=== PATIENT | female | born 1960 | race African-American/Black ===

== ENCOUNTER 2016-05-27 08:25 | Day surgery (SDC) | payer BC ==
--- NOTE | 2016-05-26 09:47 | History and Physical Report ---
History of Present Illness Date of examination: 05/25/16 Date of admission: 05/27/16 Chief complaint: Left ankle injury History of present illness: 56-year-old, fell down possibly 10 ago, twisted the left ankle with pain, swelling and limitation of movement. She is in the emergency room splinted and subsequently seen by orthopedics elsewhere. She was recommended open/closed treatment. With the fracture displacement then elected for open treatment, she was then seen in my office and being admitted for open reduction internal fixation of the fracture. Past History Past Medical History: COPD Medications and Allergies Allergies Allergy/AdvReac Type Severity Reaction Status Date / Time No Known Allergies Allergy Unverified 05/26/16 09:41 Review of Systems All systems: negative Exam - Constitutional General appearance: Present: no acute distress, well-nourished - EENT Eyes: Present: PERRL ENT: hearing intact, clear oral mucosa - Neck Neck: Present: supple, normal ROM - Respiratory Respiratory effort: normal Respiratory: bilateral: CTA - Cardiovascular Heart Sounds: Present: S1 & S2. Absent: rub, click - Extremities Extremities: pulses symmetrical, No edema, abnormal (Left ankle in short-leg cast, no neurovascular deficit.) Peripheral Pulses: within normal limits - Abdominal General gastrointestinal: Present: soft, non-tender, non-distended, normal bowel sounds Female genitourinary: Present: normal - Integumentary Integumentary: Present: clear, warm, dry - Musculoskeletal Musculoskeletal: gait normal, strength equal bilaterally - Psychiatric Psychiatric: appropriate mood/affect, intact judgment & insight - Neurologic Neurologic: CNII-XII intact, moves all extremities Assessment and Plan - Patient Problems (1) Fracture of lateral malleolus of left ankle Status: Acute Qualifiers: Encounter type: initial encounter Fracture type: closed Open fracture type: O Fracture alignment: displaced Fracture healing: F Qualified Code(s ): S82.62XA - Displaced fracture of lateral malleolus of left fibula, initial encounter for closed fracture Plan to address problem: Open reduction internal fixation. Procedure complications outcome discussed with.
[~2016-05-27 08:25] MED LIST: ANCEF/STERILE WATER 2 GM/20 ML 2 GM/20 ML SYRINGE IV NR; LACTATED RINGERS 1,000 ML IV SCH; PEPCID PO NR; VERSED IV NR
--- NOTE | 2016-05-27 09:23 | Anesthesia Day of Surgery ---
Anesthesia Day of Surgery - Day of Surgery Patient Examined: Yes Patient H&P Reviewed: Yes Patient is NPO: Yes
--- NOTE | 2016-05-27 09:24 | Anesthesia Consultation ---
Anesthesia Consult and Med Hx Date of service: 05/27/16 - Airway Anesthetic Teeth Evaluation: Good ROM Head & Neck: Adequate Mental/Hyoid Distance: Adequate Mallampati Class: Class II Intubation Access Assessment: Probably Good - Pulmonary Exam CTA: Yes - Cardiac Exam Cardiac Exam: RRR - Pre-Operative Health Status ASA Pre-Surgery Classification: ASA2 Proposed Anesthetic Plan: General Nerve Block: Pop - Pulmonary Hx Smoking: No Hx Asthma: Yes (USES INHALERS) Hx Sleep Apnea: No (WANDA PRE SCREEN HIGH RISK) - Cardiovascular System Hx Hypertension: Yes ("WATCHING"- NO MEDS) Hx Coronary Artery Disease: No - Central Nervous System Hx Seizures: No CVA: No - Endocrine Hx Renal Disease: No Hx Cirrhosis: No Hx Insulin Dependent Diabetes: No Hx Thyroid Disease: No Hx Hyperthyroidism: No - Other Systems Hx Cancer: No Hx Obesity: Yes (BMI 30.3) - Additional Comments Anesthesia Medical History Comments: PONV X 1
[2016-05-27] MEDS ORDERED: DECADRON ONE ×2 (09:30→11:16)
[2016-05-27] MEDS ORDERED: MARCAINE-EPI 0.5%-1:200,000 INFILTRATI ONE (09:30)
[2016-05-27] MEDS ORDERED: XYLOCAINE 1% 20 mL ONE (09:31)
[2016-05-27] MEDS ORDERED: NEURONTIN ONE (09:33)
[2016-05-27] MEDS ORDERED: REGLAN ONE (09:33)
[2016-05-27] MEDS ORDERED: NEURONTIN PO NR (10:00)
[2016-05-27] MEDS ORDERED: SUBLIMAZE IV ONE (10:00)
[2016-05-27] MEDS ORDERED: ZOFRAN IV PRN (10:00)
[2016-05-27] MEDS ORDERED: TRANSDERM-SCOP TD NR (10:00)
[2016-05-27] MEDS ORDERED: REGLAN PO NR (10:00)
[2016-05-27] MEDS ORDERED: DIPRIVAN 10 MG/ML IV ONE (10:02)
[2016-05-27] MEDS ORDERED: XYLOCAINE MPF 2% ONE (10:02)
[2016-05-27] MEDS ORDERED: BENADRYL IV NR (10:30)
[2016-05-27] MEDS ORDERED: DILAUDID ONE (11:17)
[2016-05-27] MEDS ORDERED: ZOFRAN ONE (11:42)
[2016-05-27] MEDS ORDERED: NEOSPORIN GU IR ONE (11:45)
--- NOTE | 2016-05-27 11:52 | Procedure Note ---
Date of procedure: 05/27/16 Pre-op diagnosis: Fx lat malleolus, left ankle Post-op diagnosis: same Procedure: ORIF left lat malleoles Anesthesia: GETA, regional Surgeon: CHARLIE GARCÍA Estimated blood loss: minimal Pathology: none Condition: stable Disposition: PACU
--- NOTE | 2016-05-27 11:54 | Discharge Summary ---
Providers - Providers Date of discharge: 05/27/16 Attending physician: CHARLIE GARCÍA Primary care physician: TERELL BYRD Hospitalization Reason for admission: Fx left lat malleolus Condition: Stable Procedures: ORIF left lat malleolus/ Synthes Hospital course: Uneventful Disposition: DISCHARGED TO HOME OR SELFCARE - Discharge Diagnoses (1) Fracture of lateral malleolus of left ankle Status: Acute Qualifiers: Encounter type: initial encounter Fracture type: closed Open fracture type: O Fracture alignment: displaced Fracture healing: F Qualified Code(s ): S82.62XA - Displaced fracture of lateral malleolus of left fibula, initial encounter for closed fracture Core Measure Documentation - Palliative Care Palliative Care/ Comfort Measures: Not Applicable - Core Measures Any of the following diagnoses?: none Exam - Constitutional Vitals: Temp Pulse Resp BP Pulse Ox 97.9 F 73 12 110/66 96 05/27/16 08:53 05/27/16 10:31 05/27/16 10:31 05/27/16 10:31 05/27/16 10:31 Plan Activity: advance as tolerated, up only with assistance, fall precautions Weight Bearing Status: Non-Weight Bearing Diet: regular Wound: per your surgeon's advice Durable Medical Equipment Needed Upon Discharge: other (Has crutches) Follow up with: TERELL BYRD JR, MD [Primary Care Provider] - 7 Days CHARLIE GARCÍA MD [Staff Physician] - 7 Days
[2016-05-27] MEDS: DILAUDID IV PRN ×2 (12:29→12:44)
--- NOTE | 2016-05-27 12:58 | Post Anesthesia Evaluation ---
- Post Anesthesia Evaluation Patient Participated: Yes Airway Patent: Yes Stable Respiratory Function: Yes Nausea/Vomiting: No Temp > 96.8F: Yes Pain Manageable: Yes Adequeate Hydration: Yes Anesthesia Complications: No
[2016-05-27 13:51] VITALS: BP 117/63
--- NOTE | 2016-05-27 16:23 | XRay Report ---
Left ankle 3 views. Findings: An orthopedic side plate with multiple screws is seen transfixing a distal fibular fracture. There are no radiographic signs of complications.
--- NOTE | 2016-05-27 19:36 | Operative Report ---
PREOPERATIVE DIAGNOSIS: Fracture lateral malleolus with displacement. POSTOPERATIVE DIAGNOSIS: Fracture lateral malleolus with displacement. OPERATIVE PROCEDURE: Open reduction and internal fixation, left lateral malleolus/ Synthes 1/3 tubular plate screws. SURGEON: Sammi Zaragoza MD EXECUTIVE COMPENSATION ANALYST: Elina Whitman CSA. ANESTHESIA: Regional block with general sedation. TOURNIQUET TIME: 30 minutes. Procedure done under fluoroscopy. DESCRIPTION OF PROCEDURE: She was taken to the surgery suite, satisfactory analgesia obtained with regional block supplemented with general sedation. Left lower limb prepped with ChloraPrep, satisfactorily draped. The correct patient, procedure, and surgical sites were confirmed. After exsanguinating, tourniquet inflated to 300 mmHg pressure. Incision was made over the posterior lateral aspect of the ankle centering over the fracture site. Incision was deepened, periosteum was elevated and fracture was visualized and the fibrous tissue was excised. Under direct visualization, fracture was reduced and held in the reduced position. Drill hole was made from the proximal to distal fragment across the fracture site using a 2.4 mm drill bit, proximal cortex overdrilled to 3.5 mm and a 4.0 cancellous screw was applied thereby providing inner fragment decompression and stabilization. A 7-hole 1/3 tubular plate was prebent, applied to the posterolateral aspect of the fibula centering over the fracture site. Plate was stabilized to the proximal fragment using a 4.0 cancellous screw applied in the standard fashion. Position confirmed under fluoroscopy. Drill hole was made in the distal fragment under fluoroscopy control care taken to avoid penetration into the joint space. Two cancellous screws applied to the distal fragment, thereby stabilizing the plate distally and then the remaining screws to the proximal fragment were then completed in a similar fashion. AP, lateral and oblique fluoroscopy was carried out showing anatomical reduction and application of internal fixation. Syndesmosis then evaluated under fluoroscopy and appeared stable. Wound was irrigated with G.U. irrigant and closed in layers in the standard fashion using 3-0 Vicryl and 3-0 nylon sutures. Sterile dressings were applied. Ankle was immobilized in a posterior splint at 90 degree flexion, pronation and supination. She was transferred to recovery room to be discharged when discharge criteria are met. At the completion of procedure, counts were accurate. Total tourniquet time approximately 30 minutes. HOMEGOING INSTRUCTIONS: Elevation, localized packs, analgesics. No weightbearing ambulation. She has DME at home. Follow up at the office in 7-10 days. JOB# [id number] RVN/NTS
== END 2016-05-27 14:10 | disposition home or self-care (01) ==
LOC: OR 08:25
PROVIDERS: ATTEND Orthopaedic Surgery
DX: S82.62XA Displaced fracture of lateral malleolus of left fibula, initial encounter for closed fracture (principal); J44.9 Chronic obstructive pulmonary disease, unspecified; J45.909 Unspecified asthma, uncomplicated; I10 Essential (primary) hypertension; K21.9 Gastro-esophageal reflux disease without esophagitis; E66.9 Obesity, unspecified; Z68.30 Body mass index [BMI] 30.0-30.9, adult; Z79.899 Other long term (current) drug therapy; X50.1XXA Overexertion from prolonged static or awkward postures, initial encounter; Y93.9 Activity, unspecified; Y92.9 Unspecified place or not applicable; Y99.9 Unspecified external cause status
CPT/HCPCS: 27792; 64450; 73610; C1713; J0690; J1100; J1170; J1200; J2250; J2405; J2704; J3010; J7120

== ENCOUNTER 2016-10-30 09:36 | Outpatient (CLI) | payer BC ==
--- NOTE | 2016-10-30 14:03 | Mammography Report ---
BILATERAL DIGITAL SCREENING MAMMOGRAM with CAD: 10/30/16 09:36:00 CLINICAL: Routine screening.Previous bilateral benign biopsies COMPARISON:09/23/15 FINDINGS: The breasts are heterogeneously dense, which may obscure small masses.Three scar is marked on the left and one scar marked on the right. No mass, architectural distortion or suspicious calcifications. IMPRESSION: No mammographic evidence of malignancy. BI-RADS CATEGORY: 1 - - Negative RECOMMENDATION: Routine mammographic screening in one year. COMMENT: Patient follow-up letters are generated by our [employer] application.
== END 2016-10-30 09:37 | disposition home or self-care (01) ==
LOC: SPVWC 09:36
PROVIDERS: ATTEND Obstetrics & Gynecology
DX: Z12.31 Encounter for screening mammogram for malignant neoplasm of breast (principal); I10 Essential (primary) hypertension; J45.909 Unspecified asthma, uncomplicated
CPT/HCPCS: 77067; G0202

== ENCOUNTER 2016-12-02 09:46 | Day surgery (SDC) | payer BC ==
[2016-12-02] MEDS ORDERED: NACL 0.9% 1000 ML 1,000 ML IV SCH (11:00)
--- NOTE | 2016-12-02 11:28 | Anesthesia Consultation ---
Anesthesia Consult and Med Hx Date of service: 12/02/16 - Airway Anesthetic Teeth Evaluation: Good ROM Head & Neck: Adequate Mental/Hyoid Distance: Adequate Mallampati Class: Class I Intubation Access Assessment: Probably Good - Pulmonary Exam CTA: Yes - Cardiac Exam Cardiac Exam: RRR - Pre-Operative Health Status ASA Pre-Surgery Classification: ASA2 Proposed Anesthetic Plan: MAC - Pulmonary Hx Smoking: No Hx Asthma: Yes Hx Sleep Apnea: No (WANDA PRE SCREEN HIGH RISK) - Cardiovascular System Hx Hypertension: Yes ("WATCHING"- NO MEDS) Hx Coronary Artery Disease: No - Central Nervous System Hx Seizures: No CVA: No - Endocrine Hx Renal Disease: No Hx Cirrhosis: No Hx Insulin Dependent Diabetes: No Hx Thyroid Disease: No Hx Hyperthyroidism: No - Other Systems Hx Cancer: No Hx Obesity: Yes (BMI 30.3)
--- NOTE | 2016-12-02 11:29 | Anesthesia Day of Surgery ---
Anesthesia Day of Surgery - Day of Surgery Patient Examined: Yes Patient H&P Reviewed: Yes Patient is NPO: Yes
[2016-12-02] MEDS ORDERED: DIPRIVAN 10 MG/ML IV ONE ×3 (11:59)
--- NOTE | 2016-12-02 12:34 | Procedure Note ---
Date of procedure: 12/02/16 Pre-op diagnosis: Colon Polyp Screening Post-op diagnosis: other (No Colon Polyps noted/Extensive,moderately Severe diverticular Disease throughout the colon, most pronounced in the Left Colon? mIld to Moderate Internal Hemorrhoid/No Colon Polyps noted) Anesthesia: MAC Surgeon: GALLO CORTÉS Estimated blood loss: none Pathology: none Condition: stable Disposition: same day (Encourage patient to take fiber supplements and resume home medication and follow up in 1 to 2 weeks.)
[2016-12-02 13:57] VITALS: BP 122/73
--- NOTE | 2016-12-02 14:10 | History and Physical Report ---
HISTORY OF PRESENT ILLNESS: This is a 56-year-old female originally from the [facility], who is here for evaluation for colonoscopy as part of colon polyp screening. Last colonoscopy was close to 10 years ago. She has noticed some changes in her bowel habits and has a remote history of cancer in the family and also has had some breast cyst removed. In addition, she has had some cervical polyps. She has an underlying history of asthma and on occasion has some shortness of breath. SOCIAL HISTORY: Denies any history of smoking, rarely drinks alcohol. No cardiac issues. She has not had any flu shot this year. ALLERGIES: No known allergies. MEDICATIONS: She normally uses Ventolin on a p.r.n. basis, Advair, and vitamins. PHYSICAL EXAMINATION: GENERAL: She is afebrile. VITAL SIGNS: Blood pressure 132/78, pulse 71, height is 5 feet, weight is 156 pounds. HEENT: Exam shows no JVD. LUNGS: Clear to auscultation with some reduced breath sounds. CARDIOVASCULAR: Grossly normal. ABDOMEN: Soft. Bowel sounds present. NEUROLOGIC: The patient is otherwise alert and oriented. IMPRESSION: Colon polyp screening, changes in bowel habits, history of asthma, and history of diverticular disease. PLAN: Is to do a colonoscopy prep in [facility] on 12/02/2016. JOB# [id number] PRISCILLA/MAGALIS
--- NOTE | 2016-12-02 14:17 | Operative Report ---
INDICATIONS: This is a 56-year-old female originally from the [facility], who has an underlying history of asthma, prior history of colon polyps. Last colonoscopy was several years ago. Colonoscopy was done to make sure there was not any recurrence of any polyps. Procedure was done as part of colon polyp screening. DESCRIPTION OF PROCEDURE: Procedure was done after getting informed consent with MAC anesthesia. Initial rectal exam was unremarkable. Instrument was passed rectum onto the cecum, which was identified with ileocecal valve and the appendiceal orifice. Visualization was fair. The terminal ileum was intubated showed normal mucosa. Cecum, ascending colon, transverse colon showed few scattered diverticula. There was moderately severe and deep seated diverticula noted in the left colon involving the descending colon and the sigmoid and the rectum showed mild to moderate internal hemorrhoids. No colon polyps were noted. There was no biopsy done and no bleeding associated with the procedure. IMPRESSION: Colon polyp screening. No colon polyps noted. Moderately severe diverticular disease, most pronounced in the left colon, mild to moderate internal hemorrhoids. The patient will be encouraged to take fiber supplements. Resume previous medication and follow up in the office in about a week's time. cc: Dr. Gomes JOB# [id number] PRISCILLA/MAGALIS
== END 2016-12-02 09:47 | disposition home or self-care (01) ==
LOC: GIO 09:46
DX: Z09 Encounter for follow-up examination after completed treatment for conditions other than malignant neoplasm (principal); K57.30 Diverticulosis of large intestine without perforation or abscess without bleeding; K64.8 Other hemorrhoids; J45.909 Unspecified asthma, uncomplicated; I10 Essential (primary) hypertension; E66.9 Obesity, unspecified; Z68.30 Body mass index [BMI] 30.0-30.9, adult; Z80.9 Family history of malignant neoplasm, unspecified
CPT/HCPCS: 45378; J2704; J7030

== ENCOUNTER 2017-02-11 09:46 | Outpatient (CLI) | payer BC ==
[2017-02-11 10:15] LABS: Eosinophils % (Auto) 5.8 % (0.0-4.3); Hematocrit 38.6 % (30.3-42.9); Hemoglobin 12.5 gm/dl (10.1-14.3); Mean Corpuscular HGB Conc 33 % (30-34); Mean Corpuscular Hemoglobin 30 pg (28-32); Mean Corpuscular Volume 92 fl (79-97); Platelet Count 358 K/mm3 (140-440); Red Blood Count 4.22 M/mm3 (3.65-5.03); Red Cell Distribution Width 13.6 % (13.2-15.2); White Blood Count 7.4 K/mm3 (4.5-11.0)
[2017-02-11 10:37] LABS: Alanine Aminotransferase 23 units/L (7-56); Albumin/Globulin Ratio 1.2 %; Alkaline Phosphatase 73 units/L (35-129); Anion Gap 15 mmol/L; BUN/Creatinine Ratio 20; Blood Urea Nitrogen 8 mg/dL (7-17); Calcium 8.7 mg/dL (8.4-10.2); Carbon Dioxide 27 mmol/L (22-30); Chloride 105.7 mmol/L (98-107); Cholesterol 178 mg/dL (50-199); Glucose 105 mg/dL (65-100); HDL Cholesterol 67 mg/dL (40-59); LDL Cholesterol,Direct 94 mg/dL (50-130); Potassium 4.3 mmol/L (3.6-5.0); Sodium 143 mmol/L (137-145); Total Protein 7.3 g/dL (6.3-8.2); Triglycerides 85 mg/dL (2-149)
[2017-02-13 06:22] LABS: Vitamin D, 25-OH, Total 32 ng/mL (30-100)
== END 2017-02-11 09:47 | disposition home or self-care (01) ==
LOC: LAB 09:46
PROVIDERS: ATTEND Obstetrics & Gynecology
DX: Z13.29 Encounter for screening for other suspected endocrine disorder (principal); Z13.220 Encounter for screening for lipoid disorders; Z13.21 Encounter for screening for nutritional disorder; Z13.0 Encounter for screening for diseases of the blood and blood-forming organs and certain disorders involving the immune mechanism; R79.89 Other specified abnormal findings of blood chemistry
CPT/HCPCS: 36415; 80053; 80061; 82306; 83036; 84443; 85025

== ENCOUNTER 2017-11-22 11:15 | Outpatient (CLI) | payer BC ==
--- NOTE | 2017-11-23 09:19 | Mammography Report ---
BILATERAL DIGITAL SCREENING MAMMOGRAM with CAD: 11/22/17 11:15:00 CLINICAL: Routine screening. COMPARISON:10/30/16 FINDINGS: The breasts are heterogeneously dense, which may obscure small masses. No mass, architectural distortion or suspicious calcifications. IMPRESSION: No mammographic evidence of malignancy. BI-RADS CATEGORY: 1 - - Negative RECOMMENDATION: Routine mammographic screening in one year. COMMENT: Patient follow-up letters are generated by our [employer] application.
== END 2017-11-22 11:16 | disposition home or self-care (01) ==
LOC: SPVWC 11:15
PROVIDERS: ATTEND Obstetrics & Gynecology
DX: Z12.31 Encounter for screening mammogram for malignant neoplasm of breast (principal); I10 Essential (primary) hypertension; J45.909 Unspecified asthma, uncomplicated; K21.9 Gastro-esophageal reflux disease without esophagitis
CPT/HCPCS: 77067

== ENCOUNTER 2017-12-30 13:21 | Outpatient (CLI) | payer BC ==
[2017-12-30 13:58] LABS: Basophils # (Auto) 0.1 K/mm3 (0.0-0.1); Basophils % (Auto) 1.9 % (0.0-1.8); Eosinophils # (Auto) 0.3 K/mm3 (0.0-0.4); Eosinophils % (Auto) 5.2 % (0.0-4.3); Hematocrit 38.1 % (30.3-42.9); Hemoglobin 13.2 gm/dl (10.1-14.3); Lymphocytes % (Auto) 29.7 % (13.4-35.0); Mean Corpuscular HGB Conc 35 % (30-34); Mean Corpuscular Hemoglobin 32 pg (28-32); Mean Corpuscular Volume 91 fl (79-97); Monocytes # (Auto) 0.4 K/mm3 (0.0-0.8); Monocytes % (Auto) 5.6 % (0.0-7.3); Platelet Count 307 K/mm3 (140-440); Red Blood Count 4.19 M/mm3 (3.65-5.03); Red Cell Distribution Width 13.3 % (13.2-15.2)
[2017-12-30 14:13] LABS: Alanine Aminotransferase 13 units/L (7-56); Albumin 4.4 g/dL (3.9-5); BUN/Creatinine Ratio 23; Blood Urea Nitrogen 9 mg/dL (7-17); Calcium 9.2 mg/dL (8.4-10.2); Chol/HDL Ratio 2.52 %; HDL Cholesterol 69 mg/dL (40-59); Hemolysis Index 10; LDL Cholesterol,Direct 111 mg/dL (50-130)
== END 2017-12-30 13:22 | disposition home or self-care (01) ==
LOC: LAB 13:21
PROVIDERS: ATTEND Internal Medicine
DX: Z00.01 Encounter for general adult medical examination with abnormal findings (principal); I10 Essential (primary) hypertension; J45.909 Unspecified asthma, uncomplicated; K21.9 Gastro-esophageal reflux disease without esophagitis; E66.9 Obesity, unspecified
CPT/HCPCS: 36415; 80053; 80061; 84443; 85025

== ENCOUNTER 2018-12-01 09:27 | Outpatient (CLI) | payer BC ==
--- NOTE | 2018-12-02 10:19 | Mammography Report ---
BILATERAL DIGITAL SCREENING MAMMOGRAM WITH CAD INDICATION: Routine screening mammography. TECHNIQUE: Digital bilateral 2D mammography was obtained in the craniocaudal and mediolateral obliq ue projections. This examination was interpreted with the benefit of Computer-Aided Detection analysi s. COMPARISON: 11/22/2017 FINDINGS: Breast Density: The breasts are heterogeneously dense, which may obscure small masses. No mass, architectural distortion or suspicious calcifications. IMPRESSION:No mammographic evidence of malignancy. BI-RADS Category 1: Negative. No mammographic evidence of malignancy. Recommend routine screening m ammography in one year. A "normal" or negative report should not discourage follow up or biopsy of a clinically significant f inding. A written summary of these findings will be mailed to the patient. The patient will be entered into a mammography reporting system which will generate a reminder letter for the patient's next appointmen t at the appropriate interval. The [employer] recommends yearly mammograms starting at age 40 and continuing as l rebekah as a woman is in good health. Breast MRI is recommended for women with an approximate 20-25% or greater lifetime risk of breast cancer, including women with a strong family history of breast or ova ez cancer or who have been treated for Hodgkin's disease. Signer Name: Zack Iniguez MD Signed: 12/02/2018 10:15 AM Workstation Name: [id number]
== END 2018-12-01 09:28 | disposition home or self-care (01) ==
LOC: SPVWC 09:27
PROVIDERS: ATTEND Obstetrics & Gynecology
DX: Z12.31 Encounter for screening mammogram for malignant neoplasm of breast (principal); I10 Essential (primary) hypertension; J45.909 Unspecified asthma, uncomplicated; K21.9 Gastro-esophageal reflux disease without esophagitis; Z79.899 Other long term (current) drug therapy
CPT/HCPCS: 77067

== ENCOUNTER 2018-12-27 10:01 | Outpatient (CLI) | payer BC ==
[2018-12-27 10:26] LABS: Hematocrit 38.3 % (30.3-42.9); Hemoglobin 12.8 gm/dl (10.1-14.3); Mean Corpuscular HGB Conc 34 % (30-34); Mean Corpuscular Volume 91 fl (79-97); Platelet Count 304 K/mm3 (140-440); Red Blood Count 4.19 M/mm3 (3.65-5.03); Red Cell Distribution Width 13.7 % (13.2-15.2)
[2018-12-27 10:51] LABS: Alanine Aminotransferase 13 units/L (7-56); Albumin 4.4 g/dL (3.9-5); BUN/Creatinine Ratio 28; Blood Urea Nitrogen 11 mg/dL (7-17); Chol/HDL Ratio 2.82 %; HDL Cholesterol 64 mg/dL (40-59); Hemolysis Index 4; LDL Cholesterol,Direct 112 mg/dL (50-130)
[2018-12-30 11:17] LABS: Vitamin D, 25-OH, D2 <4 ng/mL
== END 2018-12-27 10:02 | disposition home or self-care (01) ==
LOC: LAB 10:01
PROVIDERS: ATTEND Obstetrics & Gynecology
DX: Z13.1 Encounter for screening for diabetes mellitus (principal)
CPT/HCPCS: 36415; 80053; 80061; 82306; 82962; 83036; 84443; 85027

== ENCOUNTER 2020-02-28 11:37 | Outpatient (CLI) | payer BC ==
[2020-02-28 12:10] LABS: Basophils % (Auto) 0.6 % (0.0-1.8); Eosinophils # (Auto) 0.3 K/mm3 (0.0-0.4); Eosinophils % (Auto) 4.2 % (0.0-4.3); Hematocrit 39.4 % (30.3-42.9); Hemoglobin 13.1 gm/dl (10.1-14.3); Lymphocytes % (Auto) 28.4 % (13.4-35.0); Mean Corpuscular HGB Conc 33 % (30-34); Mean Corpuscular Volume 93 fl (79-97); Monocytes # (Auto) 0.4 K/mm3 (0.0-0.8); Monocytes % (Auto) 5.7 % (0.0-7.3); Platelet Count 309 K/mm3 (140-440); Red Blood Count 4.23 M/mm3 (3.65-5.03); Red Cell Distribution Width 12.9 % (13.2-15.2)
[2020-02-28 12:24] LABS: Alanine Aminotransferase 20 units/L (7-56); Albumin 4.3 g/dL (3.9-5); Blood Urea Nitrogen 10 mg/dL (7-17); Calcium 9.5 mg/dL (8.4-10.2); Chol/HDL Ratio 2.41 %; HDL Cholesterol 77 mg/dL (40-59); Hemolysis Index 5; LDL Cholesterol,Direct 112 mg/dL (50-130)
[2020-02-28 12:25] LABS: BUN/Creatinine Ratio 25
== END 2020-02-28 11:38 | disposition home or self-care (01) ==
LOC: LAB 11:37
PROVIDERS: ATTEND Internal Medicine
DX: Z00.00 Encounter for general adult medical examination without abnormal findings (principal)
CPT/HCPCS: 36415; 80053; 80061; 84443; 85025

== ENCOUNTER 2020-12-17 11:09 | Outpatient (CLI) | payer BC ==
--- NOTE | 2020-12-17 15:59 | Mammography Report ---
DIGITAL SCREENING MAMMOGRAM WITH CAD, 12/17/2020 CLINICAL INFORMATION / INDICATION: Routine screening TECHNIQUE: Digital bilateral 2D mammography was obtained in the craniocaudal and mediolateral obliqu e projections. This examination was interpreted with the benefit of Computer-Aided Detection analysis . COMPARISON: 12/06/2019 FINDINGS: Breast Density: The breasts are heterogeneously dense, which may obscure small masses. No dominant mass, suspicious calcifications, or architectural distortion in either breast. Bilateral surgical changes are again seen. IMPRESSION: No mammographic evidence of malignancy. Follow up recommendation: Routine yearly BI-RADS Category 2: Benign. A "normal" or negative report should not discourage follow up or biopsy of a clinically significant f inding. A written summary of these findings will be mailed to the patient. The patient will be entered into a mammography reporting system which will generate a reminder letter for the patient's next appointmen t at the appropriate interval. The [employer] recommends yearly mammograms starting at age 40 and continuing as l rebekah as a woman is in good health. Breast MRI is recommended for women with an approximate 20-25% or greater lifetime risk of breast cancer, including women with a strong family history of breast or ova ez cancer or who have been treated for Hodgkin's disease. Signer Name: Orlando Erwin MD Signed: 12/17/2020 3:52 PM Workstation Name: [id number]
== END 2020-12-17 11:10 | disposition home or self-care (01) ==
LOC: SPVWC 11:09
PROVIDERS: ATTEND Obstetrics & Gynecology
DX: Z12.31 Encounter for screening mammogram for malignant neoplasm of breast (principal)
CPT/HCPCS: 77067

== ENCOUNTER 2021-02-25 12:17 | Outpatient (CLI) | payer BC ==
[2021-02-25 12:59] LABS: Basophils % (Auto) 0.8 % (0.0-1.8); Eosinophils # (Auto) 0.3 K/mm3 (0.0-0.4); Eosinophils % (Auto) 4.8 % (0.0-4.3); Hemoglobin 12.6 gm/dl (10.1-14.3); Lymphocytes # (Auto) 1.6 K/mm3 (1.2-5.4); Lymphocytes % (Auto) 28.9 % (13.4-35.0); Monocytes # (Auto) 0.4 K/mm3 (0.0-0.8); Monocytes % (Auto) 6.5 % (0.0-7.3)
[2021-02-25 13:08] LABS: Hematocrit 38.5 % (30.3-42.9); Mean Corpuscular HGB Conc 33 % (30-34); Mean Corpuscular Volume 93 fl (79-97); Platelet Count 316 K/mm3 (140-440); Red Blood Count 4.14 M/mm3 (3.65-5.03); Red Cell Distribution Width 13.3 % (13.2-15.2)
[2021-02-25 13:22] LABS: Alanine Aminotransferase 17 units/L (7-56); Albumin 4.7 g/dL (3.9-5); Blood Urea Nitrogen 9 mg/dL (7-17); Calcium 8.9 mg/dL (8.4-10.2); Chol/HDL Ratio 2.55 %; HDL Cholesterol 70 mg/dL (40-59); Hemolysis Index 7; LDL Cholesterol,Direct 104 mg/dL (50-130)
[2021-02-25 13:23] LABS: BUN/Creatinine Ratio 23
== END 2021-02-25 12:18 | disposition home or self-care (01) ==
LOC: LAB 12:17
PROVIDERS: ATTEND Internal Medicine
DX: Z00.00 Encounter for general adult medical examination without abnormal findings (principal)
CPT/HCPCS: 36415; 80053; 80061; 82306; 84443; 85025

== ENCOUNTER 2021-12-25 13:29 | Outpatient (CLI) | payer BC ==
--- NOTE | 2021-12-28 15:02 | Mammography Report ---
DIGITAL SCREENING MAMMOGRAM WITH TOMOSYNTHESIS WITH CAD, 12/25/2021 CLINICAL INFORMATION / INDICATION: Routine Screening Mammography. SCREENING MAMMO WITH BEE Z12.31. TECHNIQUE: Digital bilateral 2D and 3D mammography with tomosynthesis was obtained in the craniocauda l and mediolateral oblique projections. Computer-Aided Detection (CAD) analysis was used for interpr etation of this study. COMPARISON: 04/18/2013 through 12/17/2020. FINDINGS: Breast Density: The breasts are heterogeneously dense, which may obscure small masses. No dominant mass, suspicious calcifications, or architectural distortion in either breast. No new abnormality is seen. IMPRESSION: No mammographic evidence of malignancy. Follow up recommendation: Routine yearly screening mammogram. BI-RADS Category 1: NEGATIVE A "normal" or negative report should not discourage follow up or biopsy of a clinically significant f inding. A written summary of these findings will be mailed to the patient. The patient will be entered into a mammography reporting system which will generate a reminder letter for the patient's next appointmen t at the appropriate interval. The [employer] recommends yearly mammograms starting at age 40 and continuing as l rebekah as a woman is in good health. Breast MRI is recommended for women with an approximate 20-25% or greater lifetime risk of breast cancer, including women with a strong family history of breast or ova ez cancer or who have been treated for Hodgkin's disease. Signer Name: Flaco Herrera MD Signed: 12/28/2021 2:58 PM Workstation Name: [id number]
== END 2021-12-25 13:30 | disposition home or self-care (01) ==
LOC: SPVWC 13:29
PROVIDERS: ATTEND Obstetrics & Gynecology
DX: Z12.31 Encounter for screening mammogram for malignant neoplasm of breast (principal)
CPT/HCPCS: 77063; 77067